=== PATIENT | female | born 1990 | race Caucasian/White ===

== ENCOUNTER 2023-04-19 00:43 | Emergency (ER) | payer BC, SELFPAY ==
[2023-04-19 00:52] VITALS: BP 132/80; PULSE 91; RESP 16; TEMP 36.9; O2SAT 98; BMI 29.2
--- NOTE | 2023-04-19 01:05 | ED.NURSE ---
updated on last tetanus 05/27/14
--- NOTE | 2023-04-19 01:09 | ED.WOUNDLAC ---
HPI - Wound/Laceration General Time Seen by Provider: 00:55 Date Seen: 04/19/23 Chief Complaint: Syncope/Fainted Stated Complaint: fell in the bathroom,hit her thigh and rt eyebrow Time Seen by Provider: 04/19/23 00:55 Source: patient and RN notes reviewed Mode of arrival: ambulatory Limitations: no limitations History of Present Illness HPI narrative: Patient is a 32-year-old female that had an episode of vasovagal syncope. She was sitting on the toilet tonight having significant abdominal cramping. She was feeling sick to her stomach, thought maybe she had to have a stool. She questioned whether maybe she ate some bad food. In any event her abdominal pain and cramping were severe, next thing she knew she was on the floor and sustained a cut below her right eyebrow. She does not believe that she was out long. Denies any headache, no neck pain. Her concern is her laceration underneath her right eyebrow. Her tetanus is up-to-date in May of 2014. She did hear some ringing in her ears when this happened. Place: home Patient tetanus UTD: Yes Related Data Home Medications Medication Instructions Recorded Confirmed benztropine 1 mg tablet 1 mg PO BID PRN 04/19/23 04/19/23 clonidine HCl 0.1 mg tablet 0.05 - 0.1 mg PO 3XD 04/19/23 04/19/23 dextroamphetamine-amphetamine 20 PO 04/19/23 mg tablet lurasidone 40 mg tablet 40 mg PO QPM 04/19/23 04/19/23 nortriptyline 10 mg capsule 10 - 20 mg PO QPM 04/19/23 04/19/23 Allergies Allergy/AdvReac Type Severity Reaction Status Date / Time No Known Drug Allergies Allergy Verified 04/19/23 00:56 Review of Systems Narrative: As per HPI PFSH PFSH Social History Do you use any of these nicotine containing products: None How often do you have a drink containing alcohol: never AUDIT-C Alcohol total score: 0 Non-prescribed substance use: marijuana (any form) Non-prescribed substance use details: thc Exam Const: Vital Signs, click to edit/add: Vital Signs - 24 hr 04/19/23 00:52 Temperature 98.5 F Pulse Rate [Right Pulse Oximeter] 91 Respiratory Rate 16 Blood Pressure [Ri ght Upper Arm] 132/80 Pulse Oximetry 98 Oxygen Delivery Me thod Room Air 32-year-old female ambulatory into the ED of her own accord. She is alert, interactive, no distress. Pupils are equal round reactive, extraocular muscles intact. She has about a 1.5 cm laceration with gaping wound edges just below the right eyebrow, there is some surrounding tissue swelling, no active bleeding at this time. Rest of her facial exam is normal. Nose, mouth atraumatic. She denies any midline tenderness of her neck, has good range of motion of her neck. Again, she was ambulatory into the ED. Documenting provider has reviewed patient's vital signs: yes Course Vital Signs Vital signs: Initial Vital Signs Temperature 98.5 F 04/19/23 00:52 Temperature Source Temporal Artery Scan 04/19/23 00:52 Pulse Rate 91 04/19/23 00:52 Pulse Rhythm Regular 04/19/23 00:52 Respiratory Rate 16 04/19/23 00:52 Blood Pressure 132/80 04/19/23 00:52 Blood Pressure Mean 97 04/19/23 00:52 Blood Pressure Position Sitting 04/19/23 00:52 Pulse Oximetry 98 04/19/23 00:52 Oxygen Delivery Method Room Air 04/19/23 00:52 Vital Signs Temperature 98.5 F 04/19/23 00:52 Pulse Rate 91 04/19/23 00:52 Respiratory Rate 16 04/19/23 00:52 Blood Pressure 132/80 04/19/23 00:52 Pulse Oximetry 98 04/19/23 00:52 Oxygen Delivery Method Room Air 04/19/23 00:52 Temperature 98.5 F 04/19/23 00:52 Pulse Rate 91 04/19/23 00:52 Respiratory Rate 16 04/19/23 00:52 Blood Pressure 132/80 04/19/23 00:52 Pulse Oximetry 98 04/19/23 00:52 Oxygen Delivery Method Room Air 04/19/23 00:52 Discharge Plan Discharge Clinical Impression: Vasovagal syncope, Laceration of face Patient Disposition: Home, Self-Care Condition: Stable Instructions: Care For Your Stitches (ED), Laceration (ED), Syncope (ED) Additional Instructions: May shower as usual. Use bacitracin or Vaseline to the wound and keep a thin layer on until wound is healed. Need to schedule a clinic follow-up in about 5-7 days to assess the wound for suture removal. Sleeping with your head a bit more elevated for the next couple days as well as ice to the swollen eyebrow will help diminish pain and swelling. You are fine to use Tylenol and ibuprofen per bottle directions as needed for pain management. If there are further episodes of syncope unrelated to stomach cramping /stomach issues, have concerns about the wound or infection with the wound, do recommend re-evaluation. Activity Level: Activity as Tolerated Discharge Diet: Regular Prescriptions: No Action clonidine HCl 0.1 mg tablet 0.05 - 0.1 mg PO 3XD nortriptyline 10 mg capsule 10 - 20 mg PO QPM dextroamphetamine-amphetamine 20 mg tablet PO benztropine 1 mg tablet 1 mg PO BID PRN lurasidone 40 mg tablet 40 mg PO QPM Follow Up/Referrals: Ella Benavidez MD [Primary Care Provider] - Stand Alone Forms: [facility] Info Instructions Procedures Laceration Laceration 1: Pre procedure diagnosis: facial laceration below outer right eyebrow Post procedure diagnosis: same Site marking: not applicable Name of person performing procedure: Maxine Amaya Site: face Side (If applicable): right Size (cm): 1.5 Description: linear Depth: simple, single layer Local Anesthetic: lidocaine 1% Amount of anesthesia used (mL): 5 Pre-repair: wound explored Skin layer closed with: other ( Ethilon) Size (cm): 5-0 Number of sutures: 4 Technique: simple, interrupted Estimated blood loss (if any): none Conclusion: patient tolerated procedure
[2023-04-19 01:23] VITALS: BP 128/76; PULSE 78; RESP 16; TEMP 36.9
[2023-04-19] MEDS: lidocaine HCL 2 % MULTIDOSE 20 ML VIAL 5 ML INJECTION (01:24)
== END 2023-04-19 01:29 | disposition home or self-care (01) ==
LOC: ED 01:29
PROVIDERS: Emergency Provider Family Medicine; PCP Family Medicine
DX: S01.111A Laceration without foreign body of right eyelid and periocular area, initial encounter (principal); W18.11XA Fall from or off toilet without subsequent striking against object, initial encounter; R55 Syncope and collapse
CPT/HCPCS: 12011; 99283